=== PATIENT | male | born 2000 | race African-American/Black ===

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

== ENCOUNTER 2019-02-08 11:00 | Outpatient (CLI) | payer BC | END 2019-02-08 23:59 | disposition home or self-care (01) | LOC: RAD 11:00 | PROVIDERS: ATTEND Internal Medicine Hematology & Oncology | DX: R05 Cough (principal); R09.3 Abnormal sputum; Z95.9 Presence of cardiac and vascular implant and graft, unspecified | CPT/HCPCS: 71046 ==